=== PATIENT | female | born 2000 | race Caucasian/White ===

== ENCOUNTER 2024-02-27 12:21 | Emergency (ER) | payer OTHER ==
[2024-02-27 12:26] VITALS: BP 119/73; RESP 20; TEMP 98.4; BMI 22.4
[2024-02-27 13:19] LABS: THROAT:GRP A STREP NOT DETECTED (NOTDETECTED)
[2024-02-27] MEDS ORDERED: ALBUTEROL SO4 2.5/IPRATROPIUM 0.5 INH SOL 3 ML VIAL.NEB. NEB ONE (14:03)
[2024-02-27] MEDS ORDERED: DEXAMETHASONE SOD PHOSPHATE 10 MG/1 ML VIAL ONE (14:03)
[2024-02-27] MEDS: ALBUTEROL SO4 2.5/IPRATROPIUM 0.5 INH SOL 3 ML VIAL.NEB. NEB ONE (14:06)
[2024-02-27] MEDS: DEXAMETHASONE SOD PHOSPHATE 10 MG/1 ML VIAL IM ONE (14:21)
[2024-02-27 14:34] VITALS: PULSE 72
== END 2024-02-27 14:34 | disposition home or self-care (01) ==
LOC: JERFT 12:21
PROC: 3E023GC Introduction of Other Therapeutic Substance into Muscle, Percutaneous Approach (ICD-10-PCS; principal; 2024-02-27)
PROC: 3E0F7GC Introduction of Other Therapeutic Substance into Respiratory Tract, Via Natural or Artificial Opening (ICD-10-PCS; 2024-02-27)
DX: J40 Bronchitis, not specified as acute or chronic (principal); R05.9 Cough, unspecified; R09.81 Nasal congestion; Z20.822 Contact with and (suspected) exposure to COVID-19
CPT/HCPCS: 0241U-QW; 71046-TC-FY; 87651; 93005; 93010; 99285-25; J1100

== ENCOUNTER 2024-04-19 12:06 | Emergency (ER) | payer OTHER ==
[2024-04-19 12:24] VITALS: BP 116/79; PULSE 88; RESP 18; TEMP 98.4; BMI 22.4
[2024-04-19 14:40] LABS: HCG,QUALITATIVE URINE Negative
[2024-04-19 14:46] LABS: EPI CELLS 3 /uL (0-25.1); HYALINE CASTS 0 /uL (0-3.1); URINE APPEARANCE CLEAR; URINE BACTERIA 163 /uL (0-1359); URINE BILIRUBIN NEGATIVE (NEGATIVE); URINE COLOR YELLOW; URINE GLUCOSE (UA) NEGATIVE (NEGATIVE); URINE KETONE NEGATIVE (NEGATIVE); URINE LEUK ESTERASE 2+ (NEGATIVE); URINE NITRITE NEGATIVE (NEGATIVE); URINE PROTEIN NEGATIVE (NEGATIVE); URINE RBC 19 /uL (0-23.9); URINE UROBILINOGEN 0.2 mg/dL (0.2-1.0); URINE WBC 221 /uL (0-25.8)
== END 2024-04-19 16:42 | disposition home or self-care (01) ==
LOC: JERFT 12:06
DX: N30.00 Acute cystitis without hematuria (principal); R30.0 Dysuria; L29.2 Pruritus vulvae
CPT/HCPCS: 36415; 81003; 84703; 87070; 87077; 87086; 87186; 87205; 87252; 87491; 87591; 99283-25